=== PATIENT | female | born 1960 | race Caucasian/White ===

== ENCOUNTER 2021-04-12 03:26 | Observation (INO) ==
[2021-04-12] MEDS ORDERED: Perflutren Lipid Microsphere 1.3 ML in 0.9 % Sodium Chloride 8.7 ML IVP PRN (05:27)
[2021-04-12] MEDS: Aspirin Enteric Coated 81 MG Tablet PO SCH (08:17)
[2021-04-12 11:21] LABS: Amphetamine Screen,Urine Negative ng/mL (Cutoff=1000); Barbiturate Screen,Urine Negative ng/mL (Cutoff=200); Benzodiazepines Screen,Urine Negative ng/mL (Cutoff=200); Cannabinoid Screen,Urine Negative ng/mL (Cutoff = 50); Cocaine Screen,Urine Negative ng/mL (Cutoff= 300); Opiate Screen,Urine Negative ng/mL (Cutoff=300); Phencyclidine Screen,Urine Negative ng/mL (Cutoff=25)
[2021-04-12] MEDS: *HR* Heparin 5,000 UNIT/ML VIAL SQ SCH (17:26)
[2021-04-12] MEDS ORDERED: Acetaminophen 325 MG TABLET PO PRN (23:02)
[2021-04-13] MEDS: *HR* Heparin 5,000 UNIT/ML VIAL SQ SCH (05:19)
[2021-04-13 07:57] VITALS: BP 128/82; PULSE 63; TEMP 98.3; O2SAT 95
[2021-04-13 08:08] LABS: Chol/HDL Ratio 4.2 (0-4.9)
[2021-04-13] MEDS: Aspirin Enteric Coated 81 MG Tablet PO SCH (08:31)
[2021-04-13 10:25] LABS: Estimated Average Glucose 126 mg/dl
== END 2021-04-13 10:23 | disposition home or self-care (01) ==
LOC: 3BNU → SUATTDRO 04:54
PROVIDERS: ADMIT Family Medicine; ATTEND Internal Medicine